=== PATIENT | male | born 1950 | race Caucasian/White ===

== ENCOUNTER 2020-11-14 09:25 | Emergency (ER) | payer MEDICARE ==
[2020-11-14] MEDS ORDERED: OMNICEF300 M1 PO (09:42)
[2020-11-14 11:21] VITALS: BP 136/85
== END 2020-11-14 11:29 | disposition home or self-care (01) ==
LOC: ED 09:25
DX: S92.421A Displaced fracture of distal phalanx of right great toe, initial encounter for closed fracture (principal); S90.411A Abrasion, right great toe, initial encounter; I10 Essential (primary) hypertension; E78.5 Hyperlipidemia, unspecified; F17.200 Nicotine dependence, unspecified, uncomplicated; W20.8XXA Other cause of strike by thrown, projected or falling object, initial encounter

== ENCOUNTER 2022-08-12 06:53 | Day surgery (SDC) | payer MEDICARE ==
[~2022-08-12] VITALS: Ht 172.7 cm; Wt 63.5 kg
[~2022-08-12 06:53] MED LIST: CRESTOR5 MG PO; OMEPRAZOLE DR40 MG PO; OMNICEF300 M1 PO; PRIMIDONE50 MG PO; PROAIR HFA IN; SILDENAFIL20 MG PO
[2022-08-12] MEDS ORDERED: ASPIRINCHW 81MG PO (07:16)
[2022-08-12 10:05] VITALS: BP 158/77
== END 2022-08-12 09:48 | disposition home or self-care (01) ==
LOC: ORM 06:53
PROVIDERS: ATTEND Urology
PROC: 0VB03ZX Excision of Prostate, Percutaneous Approach, Diagnostic (ICD-10-PCS; principal; 2022-08-12)
DX: N40.1 Benign prostatic hyperplasia with lower urinary tract symptoms (principal); N13.8 Other obstructive and reflux uropathy; I10 Essential (primary) hypertension; J44.9 Chronic obstructive pulmonary disease, unspecified; K21.9 Gastro-esophageal reflux disease without esophagitis; E78.5 Hyperlipidemia, unspecified; M10.9 Gout, unspecified; Z87.891 Personal history of nicotine dependence; Z80.42 Family history of malignant neoplasm of prostate
CPT/HCPCS: J1956